=== PATIENT | female | born 1950 | race Caucasian/White ===

== ENCOUNTER → 2016-12-20 | Outpatient (CLI) | payer MEDICARE ==
--- NOTE | 2016-12-23 12:11 | MM ---
Reason for exam: screening (asymptomatic). Last mammogram was performed 2 years and 3 months ago. History: Patient is postmenopausal and is nulliparous. Physical Findings: A clinical breast exam by your physician is recommended on an annual basis and results should be correlated with mammographic findings. MG 3D Screening Mammo W/Cad Bilateral CC and MLO view(s) were taken. Prior study comparison: September 09, 2014, bilateral MG screening mammo w CAD. April 15, 2013, mammogram, performed at [facility]. The breast tissue is heterogeneously dense. This may lower the sensitivity of mammography. There is chronic nodularity bilaterally. There is no dominant lesion. No significant changes when compared with prior studies. ASSESSMENT: Benign, BI-RAD 2 RECOMMENDATION: Routine screening mammogram of both breasts in 1 year.
== END | disposition home or self-care (01) ==
LOC: RADMAMWWP 11:15
PROVIDERS: ATTEND Family Medicine
DX: Z12.31 Encounter for screening mammogram for malignant neoplasm of breast (principal)
CPT/HCPCS: 77063; G0202

== ENCOUNTER → 2018-08-05 | Outpatient (CLI) | payer MEDICARE ==
--- NOTE | 2018-08-05 11:59 | BD ---
EXAMINATION TYPE: Axial Bone Density DATE OF EXAM: 08/05/2018 COMPARISON: NONE CLINICAL HISTORY: M 85.80 Height: 66.5 Weight: 141.6 FRAX RISK QUESTIONS: Alcohol (3 or more units per day): no Family History (Parent hip fracture): no Glucocorticoids (More than 3mos): no (Ex: prednisone, prednisolone, methylprednisolone, dexamethasone, and hydrocortisone). History of Fracture in Adulthood: yes Secondary Osteoporosis: 1. Type 1 Diabetes: no 2. Hyperthyroidism: no 3. Menopause before 45: no 4. Malnutrition: no 5. Chronic liver disease: no Rheumatoid Arthritis: no Current Tobacco Use: no RISK FACTORS HISTORY OF: History of Wrist Fracture: right wrist When: 4 years ago Surgery to Spine/Hip(right/left)/Wrist (right/left): right hip replacement When: 2005 Family History of Osteoporosis: no Active: yes Diet low in dairy products/other sources of calcium: no Postmenopausal woman: after age 45 Lost more than 2 inches in height since high school: no MEDICATIONS: norco, singular, lipitor, hizar, tofranil Additional History: EXAM MEASUREMENTS: Bone mineral densitometry was performed using the [employer] System. Bone mineral density as measured about the Lumbar spine is: ----- L1-L4(G/cm2): 1.381 T Score Values are as follows: ----- L2: 0.5 ----- L3: 2.4 ----- L4: 3.2 ----- L1-L4: 1.7 Bone mineral density : baseline Bone mineral density about the L hip (g/cm2): 0.802 T Score values are as follows: -----L Neck: -1.7 -----L Total: -1.8 Bone mineral density : baseline IMPRESSION: Osteopenia (T Score between -2.5 and -1). There is slightly increased risk of fracture and the patient may be considered for treatment. Re-Screen 2-5 years. NOTE: T-SCORE=SD OF THE YOUNG ADULT MEAN.
== END | disposition home or self-care (01) ==
LOC: RADBDWWP 10:29
PROVIDERS: ATTEND Family Medicine
DX: M85.80 Other specified disorders of bone density and structure, unspecified site (principal)
CPT/HCPCS: 77080

== ENCOUNTER → 2019-01-29 | Outpatient (CLI) | payer MEDICARE ==
--- NOTE | 2019-02-01 09:30 | MM ---
Reason for exam: screening (asymptomatic). Last mammogram was performed 2 years and 1 month ago. History: Patient is postmenopausal and is nulliparous. Physical Findings: A clinical breast exam by your physician is recommended on an annual basis and results should be correlated with mammographic findings. MG 3D Screening Mammo W/Cad Bilateral CC and MLO view(s) were taken. Prior study comparison: December 20, 2016, bilateral MG 3d screening mammo w/cad. September 09, 2014, bilateral MG screening mammo w CAD. The breast tissue is heterogeneously dense. This may lower the sensitivity of mammography. No suspicious abnormality. No significant changes when compared with prior studies. ASSESSMENT: Negative, BI-RAD 1 RECOMMENDATION: Routine screening mammogram of both breasts in 1 year.
== END | disposition home or self-care (01) ==
LOC: RADMAMWWP 09:36
PROVIDERS: ATTEND Family Medicine
DX: Z12.31 Encounter for screening mammogram for malignant neoplasm of breast (principal)
CPT/HCPCS: 77063; 77067

== ENCOUNTER → 2019-03-25 | Outpatient (CLI) | payer MEDICARE ==
--- NOTE | 2019-03-25 10:01 | MR ---
EXAMINATION TYPE: MR iac wo/w con DATE OF EXAM: 03/25/2019 COMPARISON: None HISTORY: Vertigo, rt sided hearing loss TECHNIQUE: Multiplanar, multisequence images of the IAC is performed without and with IV contrast, utilizing 6.5 mL intravenous Gadavist . FINDINGS: Diffusion weighted images demonstrate no evidence of a recent infarct or other diffusion ab normality. There are multiple focal areas of abnormal signal scattered throughout the white matter wh ich are nonspecific but most typical remote microvascular ischemia. The brain volume is age appropria te. Midline structures demonstrate normal morphology. The craniocervical junction appears within normal limits. Post contrast images demonstrate no abnormal enhancement. The dural venous sinuses appear pa tent. Changes of chronic sinusitis noted. IMPRESSION: 1. Artifact limits exam. Vague enhancement is CP angles is felt to BE most likely the basis of artifa ct with no definite evidence of acoustic schwannoma or cerebellopontine angle mass. Given the limitat ion exam recommend 2. Nonspecific white matter changes most typical remote microvascular ischemia.
== END | disposition home or self-care (01) ==
LOC: RADMRIMAIN 08:47
PROVIDERS: ATTEND Otolaryngology
DX: H93.11 Tinnitus, right ear (principal); H91.91 Unspecified hearing loss, right ear
CPT/HCPCS: 70553; A9585

== ENCOUNTER → 2020-05-20 | Outpatient (CLI) | payer MEDICARE ==
--- NOTE | 2020-05-20 22:54 | MR ---
EXAMINATION TYPE: MR shoulder LT wo con DATE OF EXAM: 05/20/2020 COMPARISON: 10/02/2010 HISTORY: Left shoulder pain and decreased range of motion for 6 months. Multiplanar multiecho imaging of the left shoulder was performed without contrast. There is extensive metal artifact at the greater tuberosity of the humerus consistent with previous s urgery. There are multiple metallic foci of artifact around the humeral head and shoulder joint. Ther e is mild shoulder joint effusion. There is narrowing of the shoulder joint space with spur formation . The subscapularis tendon shows some thinning anteriorly. There is retraction of the supraspinatus tendon. There is mild shoulder joint effusion. The humeral h ead is intact. The glenoid is intact. I see no focal bone destruction. There are small degenerative c ysts in the subchondral humeral head. IMPRESSION: Large rotator cuff tear with retraction of the supraspinatus tendon which show significant progressio n compared to old exam. Osteoarthritis. Shoulder joint effusion.
== END ==
LOC: RADMRIMAIN 14:56
PROVIDERS: ATTEND Physician Assistant
DX: M19.012 Primary osteoarthritis, left shoulder (principal); M75.102 Unspecified rotator cuff tear or rupture of left shoulder, not specified as traumatic

== ENCOUNTER → 2021-01-10 | Outpatient (CLI) | payer MEDICARE ==
--- NOTE | 2021-01-10 10:03 | BD ---
EXAMINATION TYPE: Axial Bone Density DATE OF EXAM: 01/10/2021 COMPARISON: 08.05.2018 CLINICAL HISTORY: 70 YR OLD FEMALE.....ICD-10 CODE: M85.89 DISORDER OF BD Height: 64.1 Weight: 146 FRAX RISK QUESTIONS: History of Fracture in Adulthood: YES RISK FACTORS HISTORY OF: HX OF RIB FXs AN ADULT AND History of Wrist Fracture: RT WRIST AND FINGERS ON LT HAND Surgery to Spine RT HIP, THR 2008 Family History of Osteoporosis: YES, HER MOTHER WITH HIP SURG Diet low in dairy products/other sources of calcium: YES Postmenopausal woman: YES, AT AGE 50 EDNA Lost more than 2 inches in height since high school: YES Frequent falls: UNSTEADY, ARTHRITIC Hyperparathyroidism: NO Adrenal Insufficiency: NO MEDICATIONS: Additional Medications: BP MEDS, REFLUX MEDS, CHOLESTEROL MEDS, VIT D AND CALCIUM Additional History: HIP AND BILAT SHOULDER REPLACEMENTS, ARTHRITIS, EXAM MEASUREMENTS: Bone mineral densitometry was performed using the [employer] System. Bone mineral density as measured about the Lumbar spine is: ----- L1-L4(G/cm2): 1.327 T Score Values are as follows: ----- L1: 0.6 ----- L2: -0.6 ----- L3: 1.3 ----- L4: 3.2 ----- L1-L4: 1.2 Bone mineral density has: Decreased -5.2% SINCE STUDY OF 08.05.2018 Bone mineral density about the L hip (g/cm2): 0.786 T Score values are as follows: -----L Neck: -2.0 -----L Total: -1.8 Bone mineral density has: Increased 0.8% SINCE STUDY OF 08.05.2018 FRAX%s: THERE IS A 29.9% CHANCE FOR A MAJOR OSTEOPOROTIC FX AND A 8.9% FOR HIP......PROBABILITY F OR FX IN 10 YRS TIME IMPRESSION: NOTE: T-SCORE=SD OF THE YOUNG ADULT MEAN. Osteopenia
--- NOTE | 2021-01-11 09:44 | MM ---
Reason for exam: screening (asymptomatic). Last mammogram was performed 1 year and 11 months ago. History: Patient is postmenopausal and is nulliparous. Physical Findings: A clinical breast exam by your physician is recommended on an annual basis and results should be correlated with mammographic findings. MG 3D Screening Mammo W/Cad Bilateral CC and MLO view(s) were taken. Prior study comparison: January 29, 2019, bilateral MG 3d screening mammo w/cad. December 20, 2016, bilateral MG 3d screening mammo w/cad. The breast tissue is heterogeneously dense. This may lower the sensitivity of mammography. Distortion upper outer left breast zone C. ASSESSMENT: Incomplete: need additional imaging evaluation, BI-RAD 0 RECOMMENDATION: Special view mammogram of the left breast. If lesion persists on supplemental views, image directed ultrasound is recommended. [facility] will attempt to contact patient to return for supplemental views and ultrasound if indicated.
== END | disposition home or self-care (01) ==
LOC: RADMAMWWP 08:25
PROVIDERS: ATTEND Family Medicine
DX: Z12.31 Encounter for screening mammogram for malignant neoplasm of breast (principal); M85.89 Other specified disorders of bone density and structure, multiple sites; Z78.0 Asymptomatic menopausal state
CPT/HCPCS: 77063; 77067; 77080

== ENCOUNTER → 2021-01-23 | Outpatient (CLI) | payer MEDICARE ==
--- NOTE | 2021-01-23 11:07 | MM ---
Reason for exam: additional evaluation requested from abnormal screening. Last mammogram was performed less than 1 month ago. History: Patient is postmenopausal and is nulliparous. Physical Findings: Nurse did not find any significant physical abnormalities on exam. MG 3D Work Up W/Cad LT Spot compression CC, spot compression MLO, and LM view(s) were taken of the left breast. Prior study comparison: January 10, 2021, bilateral MG 3d screening mammo w/cad. January 29, 2019, bilateral MG 3d screening mammo w/cad. The breast tissue is heterogeneously dense. This may lower the sensitivity of mammography. There is no discrete abnormality including area of concern on compression. No persistent distortion. This finding is changed when compared with previous exams. These results were verbally communicated with the patient and result sheet given to the patient on 01/23/21. ASSESSMENT: Probably benign, BI-RAD 3 RECOMMENDATION: Follow-up diagnostic mammogram of the left breast in 3 months.
== END | disposition home or self-care (01) ==
LOC: RADMAMWWP 10:15
PROVIDERS: ATTEND Family Medicine
DX: R92.2 Inconclusive mammogram (principal); Z78.0 Asymptomatic menopausal state
CPT/HCPCS: 77065; G0279; 77061

== ENCOUNTER → 2021-06-29 | Outpatient (CLI) | payer MEDICARE ==
--- NOTE | 2021-07-01 07:44 | MR ---
MRI CERVICAL SPINE: CLINICAL HISTORY: Neck pain and stiffness for over a year. TECHNIQUE: Multiplanar, multisequence imaging of the cervical spine is performed without IV contrast. COMPARISON: None. FINDINGS: Sagittal images of the cervical spine show the craniocervical junction to appear within nor mal limits. The cervical and upper thoracic spinal cord is normal in caliber and signal. Reversal of normal cervical curvature with grade 1 anterolisthesis C2 on C3 and C3 on C4. There is grade 1 retr olisthesis C4 on C5, C5 on C6, C6 on C7, and C7 on T1. The vertebral body heights are normal. Modera te disc space narrowing and spurring C4-C5 through C6-C7 levels with heterogeneous Modic type I and t ype II changes extending to the C7-T1 level. Small posterior disc herniations effacing the anterior t hecal sac T1-T2 and T3-T4 along with T4-T5 levels on sagittal images. Axial images at C2-C3 level show uncovertebral facet degenerative changes bilaterally causing mild bi lateral neural foraminal narrowing. Axial images at C3-C4 levels from broad-based posterior disc protrusion effacing anterior thecal sac and causing moderate to severe left greater than right bilateral neural foraminal narrowing. Axial images at C4-C5 level. Spondylosis with broad-based posterior disc protrusion effacing anterior thecal sac of the ventral surface of spinal cord and causing advanced bilateral neural foraminal ileana rowing. Axial images at C5-C6 level shows spondylosis with broad-based right paracentral disc protrusion effa cing the anterior thecal sac and causing advanced right along with mild to moderate left-sided neural foraminal narrowing. Axial images at C6-C7 levels with spondylolisthesis with broad-based posterior disc protrusion having left paracentral/foraminal component effacing anterior thecal sac and causing moderate right along w ith advanced left-sided neural foraminal narrowing. Axial images at C7-T1 level show spondylosis with broad-based disc protrusion effacing anterior theca l sac and causing moderate right-sided neural foraminal narrowing. IMPRESSION: Loss of normal cervical curvature. Multilevel spondylolisthesis and degenerative changes as detailed above.
== END | disposition home or self-care (01) ==
LOC: RADMRIMAIN 15:03
PROVIDERS: ATTEND Physician Assistant
DX: M50.223 Other cervical disc displacement at C6-C7 level (principal); M43.12 Spondylolisthesis, cervical region; M99.71 Connective tissue and disc stenosis of intervertebral foramina of cervical region; M50.323 Other cervical disc degeneration at C6-C7 level
CPT/HCPCS: 72141

== ENCOUNTER → 2021-08-23 | Outpatient (CLI) | payer MEDICARE ==
[2021-08-23 10:32] VITALS: BP 123/43; PULSE 69; RESP 18; TEMP 98
--- NOTE | 2021-08-23 10:37 | P.CON ---
Consult Note - . Consult date: 08/23/21 Assessment/Plan:: HISTORY OF PRESENT ILLNESS: 71 yr old female as a referral from Dr. Delgado presents today with chronic and severe cervical pain x 2 yrs secondary to disc bulges, spondylosis, neuroforaminal stenoses, and facet arthropathy for evaluation. Pain originates in the base of neck, is tender to touch, 5/10 in intensity, sharp, pressure type of character of pain with radiation towards the shoulders. Pain is provoked with any type of cervical movement. Pain is relieved with medications (Mcdavid), cervical soft collar use, heat application, repositioning and rest. Past Medical History: Asthma, OA Additional Past Surgical History / Comment(s): BL Shoulder replacement, R Hip surgery, R distal Radius Fx (2014) Past Psychological History: No Psychological Hx Reported Social History: Never smoker, Occasional ETOH use, No illicit drug use. All: See list Meds: see list REVIEW OF ORGAN SYSTEMS: CONSTITUTIONAL: No fevers or chills. No recent weight loss. HEENT: No visual acuity loss, eye pain, difficulties with hearing. No nosebleeds. No difficulty swallowing. RESPIRATORY: Denies any troubles with breathing or dyspnea on exertion. CARDIOVASCULAR: Denies any chest pain, palpitations, or recent heart attacks. GASTROINTESTINAL: Denies fatty food intolerance. Has change in bowel habits and gas bloat. GENITOURINARY: Denies any blood in urine. Has increased urinary frequency. NEUROLOGICAL: + numbness and tingling along the distal extremities. No seizure disorders or headaches. MUSCULOSKELETAL: + back pain SKIN: No skin cancer. No rash. PSYCHIATRIC: Denies current depression or suicidal thoughts. ENDOCRINE: Denies current thyroid disorders. Denies any blood sugar glucose intolerance. HEME/LYMPHATIC: Denies any lumps and bumps around the neck. History of deep venous thrombosis. ALLERGY/IMMUNOLOGY: No immunoglobulin therapy. No immune deficiencies. BREAST: Denies current breast lumps, pain or nipple discharge. Physical Examinations : Constitutional : Cooperative , not in acute distress . HEENT: Neck supple. No Lymphadenopathy. Normal thyroid size . Eyes no ptosis , no icterus, no photophobia . Hearing intact. Normal oropharynx. No Thrush. Respiratory : Chest clear to auscultations bilaterally. No wheezing. No rhonchi. Cardiovascular : Regular rate and rhythm , S1 / S2. No S3 . No S4. Gastrointestinal : Abdomen soft. No tenderness. Bowel sounds x 4. No organomegaly . Genitourinary : Deferred. Neurologic : Cranial nerve II to XII intact. No focal neurological deficits. Psychiatric : alert & oriented x 3. Matching mood & appropriate affect. Judgment & insight intact. Lymphatic No Lymphadenopathy. Musculoskeletal : Cervical Spine Motor strength in the deltoid and biceps: Normal right side. Normal Left side Motor strength biceps and the wrist extensors: Normal right side . Normal left side Motor strength in the triceps muscle: Normal right side. Normal left side Deep tendon reflexes: Normal at the biceps. Normal at Brachioradialis. Normal at triceps Vertebral body tenderness to palpation over C5, C6 Cervical facet loading test: positive bilaterally Spurling test: positive Neck distraction test: positive Sterling sign: positive bilaterally Lumbar spine Motor strength lower extremities ,thigh and legs 5/5 Right side , 5/5 Left side Deep tendon reflexes : Normal Knee Jerk. Normal Ankle Jerk Vertebral body tenderness over Lumbar facet Loading Test: positive Right / positive Left Range of motion of the lumbar spine Flexion 30 degrees, extension 10 degrees Straight Leg Raise test: Left/ Right positive at degree Feliberto test: positive right / positive left. Severe tenderness over the Sacroiliac joint on the Right / Left sides Gaenslen test: positive bilaterally Seated flexion test: positive bilaterally. Sacral spine : Severe tenderness over the Sacroiliac joint: right side / left side Range of motion: Flexion of the lumbar spine <60 degrees Range of motion: Extension of the lumbar spine <20 degrees Gaenslen's Test positive Earl's Test positive Feliberto test: positive right side / left side Thigh Thrust Test Sacral Thrust Test Imaging: MRI without contrast of the cervical spine from 06/29/21 reviewed Assessment/ Plan : Cervical spondylosis, cervical DDD Recommendation of RAH C5-C6 #1. May need a series of injections, up to 3 within a six-month period, for optimal pain relief. Risks, benefits of procedure discussed and patient verbalized understanding. Denies aspirin or anti- coagulant use or medical history of diabetes. All questions answered. I have spent greater than 50 minutes on patient care today. Dr Ortega was available by phone for the evaluation of this patient. The time was used to review the medical records including relevant urine studies and Prescription history (MAPs), review of the available imaging, evaluation and examination of the patient, coordination of care with the medical staff and if applicable referring physicians, as well as creation of the medical record PQRS Measure Charge Sheet Mode of Arrival: Ambulatory - Pain Location Neck Non-Pharmacological Interventions: Heat, Position/Reposition, Sitting Pharmacological Interventions: Scheduled Medication, Topical Medication PQRS Narrative: Smoking Status Never smoker Blood Pressure 123/43 Pain Intensity [Neck] 5 Scale Used Numeric (1 - 10) Hx Alcohol Use (MH) Yes Home Medications: Ambulatory Orders Atorvastatin Calcium [Lipitor] 20 mg PO DAILY 02/16/15 Budesonide [Pulmicort Flexhaler] 2 puff INHALATION DAILY 02/16/15 Hydrocodone/Acetaminophen [Mcdavid 5-325] 1 tab PO Q6HR PRN 02/16/15 Imipramine HCl [Tofranil] 10 mg PO DAILY 02/16/15 Losartan Potassium [Cozaar] 25 mg PO DAILY 02/16/15 Montelukast Sodium [Singulair] 10 mg PO HS 02/16/15
== END ==
LOC: PNWHC3 09:28
PROVIDERS: ATTEND Specialist
DX: M50.10 Cervical disc disorder with radiculopathy, unspecified cervical region (principal); M47.22 Other spondylosis with radiculopathy, cervical region; J45.909 Unspecified asthma, uncomplicated; M19.90 Unspecified osteoarthritis, unspecified site; Z88.0 Allergy status to penicillin; Z88.5 Allergy status to narcotic agent
CPT/HCPCS: 99211

== ENCOUNTER 2021-09-27 12:35 | Day surgery (SDC) | payer MEDICARE ==
[2021-09-27] MEDS ORDERED: LACTATED RINGERS 1,000 ML IV ONE (13:03)
[2021-09-27 13:07] VITALS: BP 131/67; PULSE 72; RESP 18; TEMP 98
== END 2021-09-27 13:44 | disposition home or self-care (01) ==
LOC: ORPAIN 12:35
DX: M54.12 Radiculopathy, cervical region (principal); Z53.9 Procedure and treatment not carried out, unspecified reason

== ENCOUNTER → 2021-10-08 | Outpatient (CLI) | payer MEDICARE ==
--- NOTE | 2021-10-08 22:20 | CT ---
EXAMINATION TYPE: CT abdomen pelvis w con CT DLP: 496.5 mGycm, Automated exposure control for dose reduction was used. DATE OF EXAM: 10/08/2021 5:07 PM COMPARISON: None. CLINICAL INDICATION:Female, 71 years old with history of R10.30 LOW ABD PAIN M54.5 LOW BACK PAIN; RLQ pain and right flank pian TECHNIQUE: Axial CT of the abdomen and pelvis . Sagittal and coronal reformats were created on a [employer] workstation. Contrast used:70 mL of Isovue 300 with IV Contrast, Oral contrast used: with Oral Contrast FINDINGS: LOWER CHEST: Right major fissure intrafissural lymph node. Left lower lobe 7 mm pulmonary nodule. Fat -containing right Bochdalek hernia. Foci that no evidence of ABDOMEN LIVER: Unremarkable GALLBLADDER AND BILE DUCTS: Unremarkable. PANCREAS: Unremarkable. SPLEEN: Unremarkable. ADRENAL GLANDS: Unremarkable. KIDNEYS AND URETERS: No evidence of hydronephrosis or renal calculus. The ureters are unremarkable. PELVIS Suboptimal visualization of the pelvic structures secondary to streak artifact. BLADDER: Unremarkable REPRODUCTIVE: Unremarkable. ABDOMEN & PELVIS STOMACH AND BOWEL: Scattered diverticula are noted throughout the colon. No evidence of bowel obstruc tion. Appendix normal. PERITONEUM: No evidence of pneumoperitoneum or free fluid. VASCULATURE: Mild atherosclerotic calcifications are present throughout the abdominal aorta and its b ranches. No evidence of aortic aneurysm. MUSCULOSKELETAL: No acute osseous abnormalities. Moderate disc degeneration changes are present throu ghout the thoracolumbar spine with disc bulging and osteophytes with at least mild spinal canal steno sis throughout the lumbar spine. Right hip prosthesis with hardware intact. No evidence of fracture. Mild S-shaped scoliosis. LYMPH NODES: No gross evidence for lymphadenopathy. SOFT TISSUE/ABDOMINAL WALL: Unremarkable IMPRESSION: 1. No acute abdominal process, no obstructive uropathy, normal appendix. 2. Moderate disc degeneration changes throughout the spine. 3. Colonic diverticulosis.
== END | disposition home or self-care (01) ==
LOC: RADCTMAIN 14:56
PROVIDERS: ATTEND Family Medicine
DX: K57.30 Diverticulosis of large intestine without perforation or abscess without bleeding (principal); M47.815 Spondylosis without myelopathy or radiculopathy, thoracolumbar region
CPT/HCPCS: 82565; 84520; 74177; 36415; Q9967

== ENCOUNTER → 2022-06-05 | Outpatient (CLI) | payer MEDICARE ==
--- NOTE | 2022-06-07 13:41 | US ---
EXAMINATION TYPE: US arterial LE single level DATE OF EXAM: 06/05/2022 11:19 AM CLINICAL HISTORY: M79.671 PAIN IN RIGHT FOOT M79.672 PAIN IN LEFT FOOT. Pain in bilateral feet. Toes are discolored and feel cold. History of: Smoker: No Hypertension: Yes Diabetic: No Hyperlipidemia: No TIA/CVA: No Previous Vascular Surgery: No CAD: No TX: No Vascular Ulcers: No Claudication: ?? Doppler Waveforms: Biphasic waveforms involving the bilateral popliteal, posterior tibial, and dorsalis pedis arteries. Monophasic bilateral waveforms of the digits. Right Brachial Pressure: 136 Left Brachial Pressure: 135 Ankle-Brachial Indices: Right: 1.06 Left: 1.13 Toe Brachial Indices: Right: Unable to obtain due to limitations. Great amount of movement with cuff inflation and deflat ion. Left: 0.49 IMPRESSION: Mild to moderate peripheral arterial disease of the left digit. Suggested mild to modera te peripheral arterial disease of the right digit. The more proximal bilateral lower extremities elvis nabeel demonstrate normal ankle brachial indices and Doppler waveforms.
== END | disposition home or self-care (01) ==
LOC: RADUSWWP 10:19
PROVIDERS: ATTEND Family Medicine
DX: I73.9 Peripheral vascular disease, unspecified (principal); M79.671 Pain in right foot; M79.672 Pain in left foot
CPT/HCPCS: 93922

== ENCOUNTER → 2023-01-13 | Outpatient (CLI) | payer MEDICARE ==
--- NOTE | 2023-01-13 12:17 | BD ---
EXAMINATION TYPE: Axial Bone Density DATE OF EXAM: 01/13/2023 CLINICAL HISTORY: 72 years old Female. ICD-10 CODE: DISORDER OF BONE DENSITY M85.89 Height: 64.5" Weight: 136.3" FRAX RISK QUESTIONS: Alcohol (3 or more units per day): No Family History (Parent hip fracture): No Glucocorticoids (More than 3mos): No (Ex: prednisone, prednisolone, methylprednisolone, dexamethasone, and hydrocortisone). History of Fracture in Adulthood: Yes Secondary Osteoporosis: 1. Type 1 Diabetes: No 2. Hyperthyroidism: No 3. Menopause before 45: No 4. Malnutrition: No 5. Chronic liver disease: No Rheumatoid Arthritis: No Current Tobacco Use: No RISK FACTORS HISTORY OF: Hip Fracture (Right/Left): No Spine Fracture: No History of Wrist Fracture: Yes, rt wrist When: Many years ago Surgery to Spine/Hip(right/left)/Wrist (right/left): Right hip replacement When: 2005 Family History of Osteoporosis: No Active: Yes Diet low in dairy products/other sources of calcium: No Postmenopausal woman: Yes Lost more than 2 inches in height since high school: Yes Frequent falls: No Poor Health: No Hyperparathyroidism: No Adrenal Insufficiency: No MEDICATIONS: Prednisone or other steroids: No Thyroid Medications: No Osteoporosis Medications: No Additional Medications: Blood pressure meds, OTC Prilosec, Vit D, Calcium, [place], Gabapentin, Singula ir, Zoloft, Med for Blood circulation Additional History: Right hip replacement EXAM MEASUREMENTS: Bone mineral densitometry was performed using the [facility] System. Bone mineral density as measured about the Lumbar spine is: ----- L1-L4(G/cm2): 1.292 T Score Values are as follows: ----- L1: 0.2 ----- L2: 0.2 ----- L3: 0.0 ----- L4: 2.7 ----- L1-L4: 0.9 Z Score Values are as follows: ----- L1: 2.0 ----- L2: 2.0 ----- L3: 1.8 ----- L4: 4.5 ----- L1-L4: 2.8 Bone mineral density has: decreased -2.6% since study of: 01/10/2021 Bone mineral density about the L hip (g/cm2): 0.736 T Score values are as follows: -----L Neck: -1.4 -----L Total: -2.2 Z Score values are as follows: -----L Neck: 0.5 -----L Total: -0.5 Bone mineral density has: decreased -6.4% since study of: 01/10/2021 FRAX%s: The graph provided illustrates a 15.4% chance for a major osteoporotic fx and a 2.4% chance f or the hips probability for fx in 10 years time. IMPRESSION: Osteopenia (T Score between -2.5 and -1). There is slightly increased risk of fracture and the patient may be considered for treatment. Re-Screen 2-5 years. NOTE: T-SCORE=SD OF THE YOUNG ADULT MEAN.
--- NOTE | 2023-01-14 11:55 | MM ---
Reason for Exam: Screening (asymptomatic). Last mammogram was performed 2 year(s) and 0 month(s) ago. Patient History: Menarche at age 16. Patient has no children. Postmenopausal. Risk Values: Jovanna 5 year model risk: 1.8%. NCI Lifetime model risk: 4.6%. Prior Study Comparison: 01/29/2019 Bilateral Screening Mammogram, [facility]. 01/10/2021 Bilateral Screening Mammogram, [facility]. 01/23/2021 Left Diagnostic Mammogram, [facility]. Tissue Density: The breast tissue is heterogeneously dense. This may lower the sensitivity of mammography. Findings: Analyzed By CAD. There is no suspicious group of microcalcifications or new suspicious mass in either breast. Overall Assessment: Benign, BI-RAD 2 Management: Screening Mammogram of both breasts in 1 year. . Patient should continue monthly self-breast exams. A clinical breast exam by your physician is recommended on an annual basis. This exam should not preclude additional follow-up of suspicious palpable abnormalities. Note on Jovanna scores and lifetime risk: 1. A Jovanna score greater than 3% is considered moderate risk. If this is the case, consider specialist referral to assess eligibility for a risk reducing agent. 2. If overall lifetime risk for the development of breast cancer is 20% or higher, the patient may qualify for future screening with alternating mammogram and breast MRI. Electronically signed and approved by: Paolo Hernandez M.D. Radiologis
== END | disposition home or self-care (01) ==
LOC: RADMAMWWP 10:10
PROVIDERS: ATTEND Family Medicine
DX: Z12.31 Encounter for screening mammogram for malignant neoplasm of breast (principal); M85.852 Other specified disorders of bone density and structure, left thigh; Z78.0 Asymptomatic menopausal state
CPT/HCPCS: 77063; 77067; 77080

== ENCOUNTER → 2023-10-17 | Outpatient (CLI) | payer MEDICARE ==
--- NOTE | 2023-10-17 10:50 | MM ---
Reason for Exam: Clinical finding. Last screening mammogram was performed 9 month(s) ago. Indicated Problems: Skin changes to breast of the left side for 7 Month(s). Patient History: Menarche at age 16. Patient has no children. Postmenopausal. Risk Values: Jovanna 5 year model risk: 1.8%. NCI Lifetime model risk: 4.4%. Prior Study Comparison: 01/29/2019 Bilateral Screening Mammogram, [facility]. 01/23/2021 Left Diagnostic Mammogram, [facility]. 01/13/2023 Bilateral MG 3D screening mammo w/cad, [facility]. Tissue Density: Left: The breasts are extremely dense, which lowers the sensitivity of mammography. Findings: Analyzed By CAD. There is stable distortion upper outer left breast dating back to 2020. No new masses seen. No new areas of distortion. Dermatology consult recommended for clinical findings. Overall Assessment: Benign, BI-RAD 2 Management: Screening Mammogram of both breasts in 1 year. . Results were given to the patient verbally at the time of exam. Patient should continue monthly self-breast exams. A clinical breast exam by your physician is recommended on an annual basis. This exam should not preclude additional follow-up of suspicious palpable abnormalities. Note on Jovanna scores and lifetime risk: 1. A Jovanna score greater than 3% is considered moderate risk. If this is the case, consider specialist referral to assess eligibility for a risk reducing agent. 2. If overall lifetime risk for the development of breast cancer is 20% or higher, the patient may qualify for future screening with alternating mammogram and breast MRI. Electronically signed and approved by: Paolo Hernandez M.D. Radiologis
== END | disposition home or self-care (01) ==
LOC: RADMAMWWP 10:06
PROVIDERS: ATTEND Family Medicine
DX: N64.4 Mastodynia (principal); L98.9 Disorder of the skin and subcutaneous tissue, unspecified; R92.342 Mammographic extreme density, left breast; Z78.0 Asymptomatic menopausal state
CPT/HCPCS: 77065; G0279; 77061